=== PATIENT | female | born 1980 | race American Indian/Alaskan Native ===

== ENCOUNTER 2017-11-25 11:24 | Emergency (ER) | payer OTHER ==
[2017-11-25 12:47] LABS: Basophils % (Auto) 0.7 % (0.0-1.8); Eosinophils # (Auto) 0.1 K/mm3 (0.0-0.4); Eosinophils % (Auto) 1.4 % (0.0-4.3); Hematocrit 33.8 % (30.3-42.9); Hemoglobin 10.5 gm/dl (10.1-14.3); Lymphocytes # (Auto) 2.5 K/mm3 (1.2-5.4); Lymphocytes % (Auto) 35.9 % (13.4-35.0); Mean Corpuscular HGB Conc 31 % (30-34); Mean Corpuscular Volume 73 fl (79-97); Monocytes # (Auto) 0.8 K/mm3 (0.0-0.8); Monocytes % (Auto) 11.1 % (0.0-7.3); Platelet Count 431 K/mm3 (140-440); Red Blood Count 4.66 M/mm3 (3.65-5.03); Red Cell Distribution Width 17.9 % (13.2-15.2)
[2017-11-25 12:51] LABS: Mean Corpuscular Hemoglobin 23 pg (28-32)
[2017-11-25 13:03] LABS: HCG Qualitative,Urine Negative (Negative)
[2017-11-25 13:06] LABS: Bacteria,Urine 1+ /HPF (Negative); Mucus,Urine 1+ /HPF
[2017-11-25 13:12] LABS: Bilirubin,Urine NEG (Negative); Blood,Urine LG (Negative); Color,Urine Yellow (Yellow); Urobilinogen,Urine < 2.0 mg/dL (<2.0)
--- NOTE | 2017-11-25 16:47 | Emergency Department Report ---
HPI - General Chief Complaint: Vaginal Bleeding Time Seen by Provider: 11/25/17 16:33 - HPI HPI: Room 3 The patient is a 37-year-old female comes in with a chief complaint of dizziness , fatigue and shortness of breath. The patient states she has a history of heavy cycles for the past 4 months. The patient was started on oral contraceptives by her SENIOR SYSTEMS DEVELOPER. The patient states she's had vaginal spotting for the past 15 days. The patient states her SENIOR SYSTEMS DEVELOPER who instructed her to go to the emergency department if she developed dizziness. The patient states 3 days ago she developed dizziness and fatigue. The patient's that began noticing shortness of breath/dyspnea on exertion. Patient admits to occasional cough that is nonproductive. Patient denies orthopnea or fever. Patient states she's had a decreased appetite. The patient contacted her SENIOR SYSTEMS DEVELOPER and was instructed to come to the ED Location: [See above] Duration: [See above] Quality: [See above] Severity: Moderate Modifying factors: [see above] Context: [see above] Mode of transportation: [not driving] ED Past Medical Hx - Past Medical History Previous Medical History?: No - Surgical History Additional Surgical History: tonsilectomy - Family History Family history: no significant - Social History Smoking Status: Never Smoker Substance Use Type: None - Medications Home Medications: Home Medications Medication Instructions Recorded Confirmed Last Taken Type Meclizine [Antivert] 25 mg PO TID PRN #20 tablet 11/25/17 Unknown Rx ED Review of Systems ROS: Stated complaint: ABNORMAL LABS Other details as noted in HPI Constitutional: denies: fever Respiratory: cough, SOB with exertion Cardiovascular: dyspnea on exertion. denies: chest pain Genitourinary: abnormal menses Neurological: other (dizziness) Physical Exam - Physical Exam Vital Signs: Vital Signs 11/25/17 12:01 Temperature 98.5 F Pulse Rate 96 H Respiratory 16 Rate Blood Pressure 143/94 O2 Sat by Pulse 99 Oximetry Physical Exam: GENERAL: The patient is well-developed well-nourished female lying on stretcher not appearing to be in acute distress. [] HEENT: Normocephalic. Atraumatic. Extraocular motions are intact. Patient has moist mucous membranes. NECK: Supple. Trachea midline CHEST/LUNGS: Clear to auscultation. There is no respiratory distress noted. HEART/CARDIOVASCULAR: Regular. There is no tachycardia. There is no gallop rub or murmur. ABDOMEN: Abdomen is soft, nontender. Patient has normal bowel sounds. There is no abdominal distention. SKIN: There is no rash. There is no edema. There is no diaphoresis. NEURO: The patient is awake, alert, and oriented. The patient is cooperative. The patient has no focal neurologic deficits. The patient has normal speech. Cranial nerves II through XII grossly intact, no drift. No dysmetria with finger to nose bilaterally. No nystagmus MUSCULOSKELETAL: There is no evidence of acute injury. ED Course Vital Signs 11/25/17 12:01 Temperature 98.5 F Pulse Rate 96 H Respiratory 16 Rate Blood Pressure 143/94 O2 Sat by Pulse 99 Oximetry ED Medical Decision Making - Lab Data Result diagrams: 11/25/17 12:23 11/25/17 18:06 Laboratory Tests 11/25/17 11/25/17 11/25/17 12:20 12:23 12:25 WBC 6.8 RBC 4.66 Hgb 10.5 Hct 33.8 MCV 73 L MCH 23 L MCHC 31 RDW 17.9 H Plt Count 431 Lymph % (Auto) 35.9 H Ashe % (Auto) 11.1 H Eos % (Auto) 1.4 Baso % (Auto) 0.7 Lymph # 2.5 Ashe # 0.8 Eos # 0.1 Baso # 0.0 Seg Neutrophils % 50.9 Seg Neutrophils # 3.5 D-Dimer Sodium Potassium Chloride Carbon Dioxide Anion Gap BUN Creatinine Estimated GFR BUN/Creatinine Ratio Glucose Calcium Total Creatine Kinase Troponin T NT-Pro-B Natriuret Pep Urine Color Yellow Urine Turbidity Clear Urine pH 7.0 Ur Specific [place] 1.025 Urine Protein 30 mg/dl Urine Glucose (UA) Neg Urine Ketones Neg Urine Blood Lg Urine Nitrite Neg Ur Reducing Substances Not Reportable Urine Bilirubin Neg Urine Ictotest Not Reportable Urine Urobilinogen < 2.0 Ur Leukocyte Esterase Neg Urine WBC (Auto) 3.0 Urine RBC (Auto) 2.0 U Epithel Cells (Auto) 11.0 Urine Bacteria (Auto) 1+ Urine Mucus 1+ Urine HCG, Qual Negative Blood Type A POSITIVE Antibody Screen Negative 11/25/17 11/25/17 11/25/17 16:42 16:42 18:06 WBC RBC Hgb Hct MCV MCH MCHC RDW Plt Count Lymph % (Auto) [place]he % (Auto) Eos % (Auto) Baso % (Auto) Lymph # [place]he # Eos # Baso # Seg Neutrophils % Seg Neutrophils # D-Dimer 193.49 Sodium 138 Potassium 3.9 Chloride 102.6 Carbon Dioxide 24 Anion Gap 15 BUN 9 Creatinine 0.9 Estimated GFR > 60 BUN/Creatinine Ratio 10 Glucose 125 H Calcium 9.0 Total Creatine Kinase 123 Troponin T < 0.010 NT-Pro-B Natriuret Pep 15.20 Urine Color Urine Turbidity Urine pH Ur Specific [place] Urine Protein Urine Glucose (UA) Urine Ketones Urine Blood Urine Nitrite Ur Reducing Substances Urine Bilirubin Urine Ictotest Urine Urobilinogen Ur Leukocyte Esterase Urine WBC (Auto) Urine RBC (Auto) U Epithel Cells (Auto) Urine Bacteria (Auto) Urine Mucus Urine HCG, Qual Blood Type Antibody Screen - EKG Data -: EKG Interpreted by Me EKG shows normal: sinus rhythm Rate: normal - EKG Data When compared to previous EKG there are: previous EKG unavailable Interpretation: nonspecific ST-T wave michael (T-wave inversion in lead 3) - Radiology Data Radiology results: image reviewed (chest x-ray) interpreted by me: Chest x-ray-no focal infiltrates, no pneumothorax - Differential Diagnosis symptomatic anemia, CHF, PE, pneumonia Critical care attestation.: If time is entered above; I have spent that time in minutes in the direct care of this critically ill patient, excluding procedure time. ED Disposition Clinical Impression: Dizziness, Abnormal vaginal bleeding Disposition: DC-01 TO HOME OR SELFCARE Is pt being admited?: No Does the pt Need Aspirin: No Condition: Stable Instructions: Vertigo (ED) Additional Instructions: Return to the emergency department immediately should you develop worsening symptoms, fever, inability to tolerate food or liquid or any other concerns. Prescriptions: Meclizine [Antivert] 25 mg PO TID PRN #20 tablet PRN Reason: Vertigo Referrals: PRIMARY CARE, [Primary Care Provider] - 3-5 Days KATIE IGLESIAS MD [Staff Physician] - [facility] Time of Disposition: 19:07
[2017-11-25 19:02] LABS: BUN/Creatinine Ratio 10; Blood Urea Nitrogen 9 mg/dL (7-17); Hemolysis Index 0
[2017-11-25 19:07] LABS: Creatine Kinase MB < 1.0 ng/mL (0.0-4.0)
--- NOTE | 2017-11-25 19:10 | XRay Report ---
FINAL REPORT EXAM: XR CHEST ROUTINE 2V HISTORY: dyspnea on exertion TECHNIQUE: PA and lateral views of the chest PRIORS: None. FINDINGS: Lines, tubes, and devices: N/A Lungs and pleura: Trachea is normal in position. Lungs are clear of infiltrate, pleural effusion, vascular congestion, or pneumothorax. Cardiomediastinal silhouette: Cardiac and mediastinal silhouettes are unremarkable. Other: Bony structures are intact. IMPRESSION: No acute cardiopulmonary process seen.
[2017-11-25 19:59] VITALS: BP 117/57
== END 2017-11-25 20:19 | disposition home or self-care (01) ==
LOC: ED 11:24
DX: N93.9 Abnormal uterine and vaginal bleeding, unspecified (principal); R42 Dizziness and giddiness; Z88.8 Allergy status to other drugs, medicaments and biological substances
CPT/HCPCS: 36415; 71046; 80048; 81001; 81025; 82550; 82553; 83880; 84484; 85025; 85379; 86850; 86900; 86901; 93005; 93010; 99284

== ENCOUNTER 2020-06-06 13:55 | Outpatient (CLI) | payer OTHER ==
--- NOTE | 2020-06-07 16:21 | Magnetic Resonance Report ---
Bilateral breast MRI with and without contrast. History: New diagnosis left breast cancer Procedure: Axial T1 and T2-weighted fat-sat images were obtained precontrast. 18 cc MultiHance was i njected intravenously and serial axial T1-weighted images with fat saturation were obtained postcontr ast. 3-D MIP projections, Kinetic analysis and subtraction imaging was utilized to evaluate. A [employer] 8 channel breast coil was utilized for image acquisition. Comparison: Bilateral mammogram 03/08/2020, left postbiopsy diagnostic mammogram 05/19/2020, left breast ultrasound 03/08/2020 Findings: Background level of enhancement is mild. No suspicious axillary or clavicular nodes are identified. No abnormal bone marrow signal is seen. No significant chest wall enhancement is noted. Incidental note is made of gallstones without obvious a cute change. Right breast: Mild proliferative type changes are seen. No suspicious lesions are noted. Left breast: Mild proliferative type changes are seen. The known malignant mass in the lateral upper mid to posterior breast is seen. This mass has irregular margins and several projections, particularl y anteriorly. Greatest diameter is 4.3 cm. Contained biopsy clip and cavity are noted. The mass is ap proximately 10 cm from the nipple, 11 mm from the lateral skin surface, and 3.8 cm from the chest wal l. In the lateral mid breast more superiorly, a reniform enhancing focus is thought very likely a sma ll intramammary lymph node. No separate areas of suspicious enhancement are seen in the left breast. Impression: Known area of malignancy is seen on the left without separate areas of concern BIRADS: 6: Known diagnosis breast cancer Signer Name: Scot Nice MD Signed: 06/07/2020 4:16 PM Workstation Name: [id number]
== END 2020-06-06 13:56 | disposition home or self-care (01) ==
LOC: SPVIMAG 13:55
PROVIDERS: ATTEND Surgery
DX: C50.412 Malignant neoplasm of upper-outer quadrant of left female breast (principal)
CPT/HCPCS: A9577; C8908; 77049

== ENCOUNTER 2020-06-30 09:35 | Day surgery (SDC) | payer OTHER ==
[2020-06-28 13:28] LABS: Basophils % (Auto) 0.8 % (0.0-1.8); Eosinophils # (Auto) 0.1 K/mm3 (0.0-0.4); Eosinophils % (Auto) 1.1 % (0.0-4.3); Hematocrit 38.2 % (30.3-42.9); Hemoglobin 13.2 gm/dl (10.1-14.3); Lymphocytes # (Auto) 2.3 K/mm3 (1.2-5.4); Lymphocytes % (Auto) 39.1 % (13.4-35.0); Mean Corpuscular HGB Conc 35 % (30-34); Mean Corpuscular Volume 85 fl (79-97); Monocytes # (Auto) 0.5 K/mm3 (0.0-0.8); Monocytes % (Auto) 9.3 % (0.0-7.3); Platelet Count 310 K/mm3 (140-440); Red Blood Count 4.51 M/mm3 (3.65-5.03); Red Cell Distribution Width 14.3 % (13.2-15.2)
[2020-06-28 13:47] LABS: BUN/Creatinine Ratio 11; Blood Urea Nitrogen 10 mg/dL (7-17); Calcium 9.4 mg/dL (8.4-10.2); Hemolysis Index 12
[~2020-06-30 09:35] MED LIST: LIDOCAINE MPF (2%) 20 MG/1 ML VIAL 5 ML ONE; ceFAZolin/Water 2 GM/20 ML 2 GM/20 ML SYRINGE IV NR; fentaNYL 250 MCG/5 ML INJ ONE; propofoL 200 MG/20 ML VIAL IV ONE
[2020-06-30] MEDS ORDERED: fentaNYL 100 MCG/2 ML INJ IV ONE (09:40)
[2020-06-30] MEDS ORDERED: HYDROmorphone 1 MG/1 ML INJ IV PRN (09:40)
[2020-06-30] MEDS ORDERED: ONDANSETRON 4 MG/2 ML INJ IV PRN (09:40)
[2020-06-30] MEDS ORDERED: MIDAZOLAM 2 MG/2 ML INJ IV NR (10:00)
[2020-06-30] MEDS ORDERED: LACTATED RINGERS 1,000 ML IV SCH (10:00)
--- NOTE | 2020-06-30 10:01 | Anesthesia Day of Surgery ---
Anesthesia Day of Surgery - Day of Surgery Patient Examined: Yes Patient H&P Reviewed: Yes Patient is NPO: Yes
--- NOTE | 2020-06-30 10:03 | Anesthesia Consultation ---
Anesthesia Consult and Med Hx Date of service: 06/30/20 - Airway Anesthetic Teeth Evaluation: Crowns, Bridges ROM Head & Neck: Adequate Mental/Hyoid Distance: Adequate Mallampati Class: Class III Intubation Access Assessment: Probably Good - Pre-Operative Health Status ASA Pre-Surgery Classification: ASA2 Proposed Anesthetic Plan: General - Pulmonary Hx Smoking: No Hx Respiratory Symptoms: No (+2FS) - Cardiovascular System Hx Hypertension: No - Central Nervous System Hx Psychiatric Problems: No - Endocrine Hx Renal Disease: No Hx Insulin Dependent Diabetes: No - Hematic Hx Anemia: Yes (Past hx) Hx Sickle Cell Disease: No - Other Systems Hx Cancer: Yes Hx Obesity: Yes
[2020-06-30] MEDS ORDERED: LIDOCAINE (1%) 10 MG/1 ML VIAL 20 ML MDV ONE (10:16)
[2020-06-30] MEDS ORDERED: BUPIVACAINE/PF (0.5%) 5 MG/1 ML 30 ML VIAL INFILTRATI ONE ×3 (10:16→11:43)
[2020-06-30] MEDS ORDERED: SODIUM CHLORIDE P/F VIAL 10 ML 10 ML ONE (10:17)
[2020-06-30] MEDS ORDERED: METHYLENE BLUE 50 MG/10 ML AMP ONE (10:17)
[2020-06-30] MEDS ORDERED: NEOMY 40 MG/POLYMYXIN B 200,000 UNITS/ML (GU) AMPULE IR ONE ×2 (10:17→11:45)
[2020-06-30] MEDS ORDERED: dexAMETHasone 20 MG/5 ML VIAL ONE (11:28)
[2020-06-30] MEDS ORDERED: SODIUM CHLORIDE 0.9% P/F 10 ML VIAL INFILTRATI ONE (11:43)
[2020-06-30] MEDS ORDERED: LIDOCAINE (1%) 10 MG/1 ML VIAL 20 ML MDV INFILTRATI ONE (11:43)
[2020-06-30] MEDS ORDERED: METHYLENE BLUE 50 MG/10 ML AMP IV ONE (11:44)
[2020-06-30] MEDS ORDERED: WATER FOR IRRIG STERILE 1,500 ML BOTTLE IR ONE (12:56)
[2020-06-30] MEDS ORDERED: ONDANSETRON 4 MG/2 ML INJ ONE (13:33)
--- NOTE | 2020-06-30 13:57 | Short Stay Summary ---
Short Stay Documentation Date of service: 06/30/20 - History H&P: obtained from office - Allergies and Medications Current Medications: Allergies ethinyl estradiol [From [employer] ()] Allergy (Verified 06/28/20 08:50) Rash norgestimate [From [employer] ()] Allergy (Verified 06/28/20 08:50) Rash Home Medications Medication Instructions Recorded Confirmed Last Taken Type Lactobacillus Combination No.8 1 each PO DAILY 06/28/20 06/30/20 06/27/20 08:00 History [Adult Probiotic] Montelukast [Singulair] 10 mg PO QPM 06/28/20 06/30/20 06/27/20 08:00 History Multivit-Min/Iron/Folic Acid/K 1 each PO DAILY 06/28/20 06/30/20 06/27/20 08:00 History [One Daily Women's Multivitamin] RX: Phentermine HCl 37.5 mg PO DAILY 06/28/20 06/28/20 06/27/20 08:00 History Spironolactone [Aldactone] 50 mg PO BID 06/28/20 06/30/20 06/27/20 08:00 History cephALEXin [Keflex] 500 mg PO Q12HR #14 cap 06/30/20 Unknown Rx oxyCODONE /ACETAMINOPHEN [Percocet 1 tab PO Q6HR PRN #25 tablet 06/30/20 Unknown Rx 5/325] Active Medications Hydromorphone HCl (Dilaudid) 0.25 mg IV Q10MIN PRN PRN Reason: Pain, Moderate (4-6) Stop: 07/01/20 09:39 Hydromorphone HCl (Dilaudid) 0.5 mg IV Q10MIN PRN PRN Reason: Pain , Severe (7-10) Stop: 07/01/20 09:39 Cefazolin Sodium (Ancef/Sterile Water 2 Gm/20 Ml) 2 gm in 20 mls @ 80 mls/hr IV PREOP NR; Protocol Stop: 06/30/20 23:59 Lactated Ringer's (Lactated Ringers) 1,000 mls @ 125 mls/hr IV DIRECT VON Last Admin: 06/30/20 10:20 Dose: 125 mls/hr Documented by: Midazolam HCl (Versed) 2 mg IV PREOP NR Stop: 06/30/20 23:59 Last Admin: 06/30/20 10:28 Dose: 2 mg Documented by: Ondansetron HCl (Zofran) 4 mg IV ONCE PRN PRN Reason: Nausea And Vomiting - Brief post op/procedure progress note Date of procedure: 06/30/20 Pre-op diagnosis: Left breast cancer upper outer quadrant Post-op diagnosis: same Procedure: Left partial mastectomy with SLNB and 2x3 cm Biozorb placement Anesthesia: GETA Findings: Left breast mass with clip present; x2 slns Surgeon: ASMITA CARO Estimated blood loss: other (50 cc) Specimen disposition: to lab Condition: stable - Disposition Condition at discharge: Good Disposition: DC- TO HOME OR SELFCARE Short Stay Discharge Plan Activity: other (no heavy lifting) Diet: regular Wound: keep clean and dry (wear breast binder; may shower in 48 hours; no baths) Follow up with: ASMITA CARO MD [Staff Physician] - 7 Days Prescriptions: cephALEXin [Keflex] 500 mg PO Q12HR #14 cap oxyCODONE /ACETAMINOPHEN [Percocet 5/325] 1 tab PO Q6HR PRN #25 tablet PRN Reason: Pain
[2020-06-30] MEDS: HYDROmorphone 1 MG/1 ML INJ IV PRN ×2 (14:32→14:42)
[2020-06-30 15:10] VITALS: BP 131/79
--- NOTE | 2020-06-30 16:34 | Operative Report ---
Operative Report Operative Report: Operative Report: June 30, 2020 Preoperative diagnosis: Left breast cancer of the upper outer quadrant Postoperative diagnosis: Same Procedure: Left partial mastectomy of the upper outer quadrant with SLNB and placement of BioZorb marker 2x3 cm (lot [id number]) Surgeon: Xiomara Rojas MD Beet Topper: Leandro Esparza MD Anesthesia: General Findings: Left breast mass and clip present within radiograph specimen; x2 SLNs; placement of BioZorb marker 2x3 cm Complications: None EBL: 50 cc Disposition: PACU in good condition Indications for operative procedure: This is a 39 year old lady with newly diagnosed left breast cancer of the upper outer quadrant, IDCA with mucinous features grade 1, Stage I T2N0M0 ER/MA positive (3:00 position 10 cm FN). Recommendations are to proceed with breast conservation. She understands the role of adjuvant radiation therapy and Oncotype DX will be obtained by medical oncology. She wished to proceed with the above procedure. Procedure in detail: Patient was taken to the operating room and was laid supine. Gen. anesthesia was administered. The left nipple was injected with radioisotope. Left breast and axilla were prepped and draped in the normal sterile operative fashion. Timeout was performed. Gamma probe was inserted into the axilla. The area of hot spot was identified. A left axillary incision was made with a 15 blade knife with dissection taken down to the subcutaneous tissues. The axillary fascia was opened with the Bovie cautery. 2 SLNs were identified and dissected free. All remaining counts were less than 10% of the highest count. No palpable axillary lymph nodes present within the axilla. Lymph nodes were sent to pathology for permanent processing. Hemostasis was obtained in the left axillary cavity. Axillary cavity was appropriately irrigated and suctioned. Hemostasis was noted. Axillary fascia was approximated and closed using interrupted 3-0 Vicryl and the skin brought together and closed using a running 4-0 Monocryl followed by skin affix. Attention was then taken towards the left breast. Ultrasound was used as well to stephany the area of incision, known cancer at 3:00 positin 10 cm FN. A superior breast incision around 2:00 position was made with a 15 blade knife and dissection taken down to subcutaneous tissues. First began raising of the superior flap with dissection taken superiorly past the area of known malignancy and then taken down to the pectoralis muscle, followed by raising of the inferior flap, medial flap and lateral flap with all flaps taken past the area of known malignancy and then posteriorly down to the pectoralis muscle. A questionable satellite lesion was noted as well that was incorporated into the area of the partial mastectomy (superficial nodule at 2:00 position at least 2 cm from main palpable cancer mass). The breast area of concern was appropriately removed posteriorly from the pectoralis muscle with the aid of the Bovie cautery. Specimen was marked and then sent to pathology and radiology; radiograph specimen with mass and clip present. Breast cavity was irrigated and hemostasis was obtained. The breast cavity was then anesthesized with 1% lidocaine mixed with quarter percent marcaine. Then proceeded with placement of BioZorb marker lot [id number]. The posterior deep breast tissues were then mobilized to approximate and cover the area of the defect of at least 7 cm. The posterior deep breast tissues were approximated and closed using interrupted 3-0 Vicryl. The BioZorb of 2x3 centimeters was then sutured into place using interrupted 2-0 PDS, placing 4 sutures. Anterior breast tissue were then approximated and closed using interrupted 3-0 Vicryl. The BioZorb was not easily palpable. The subcutaneous tissues were then approximated and closed using interrupted 3-0 Vicryl followed by closing of the skin with a running 4-0 Monocryl and skin affix. The patient tolerated surgery very well and she was awaken from anesthesia without any complication and transported to PACU in good condition.
--- NOTE | 2020-06-30 17:21 | Post Anesthesia Evaluation ---
- Post Anesthesia Evaluation Patient Participated: Yes Airway Patent: Yes Stable Respiratory Function: Yes Nausea/Vomiting: No Temp > 96.8F: Yes Pain Manageable: Yes Adequeate Hydration: Yes Anesthesia Complications: No Block Receding Appropriately: Not Applicable Patient on Ventilator: No
--- NOTE | 2020-07-01 10:42 | Mammography Report ---
BREAST SPECIMEN RADIOGRAPH HISTORY: Left lumpectomy for breast carcinoma FINDINGS/IMPRESSION: The submitted radiograph or radiographs demonstrate(s) the presence of an irregular soft tissue mass containing biopsy clip. Signer Name: Meka Bocanegra MD Signed: 07/01/2020 10:38 AM Workstation Name: [id number]
== END 2020-06-30 15:45 | disposition home or self-care (01) ==
LOC: OR 09:35
PROVIDERS: ATTEND Surgery
DX: C50.412 Malignant neoplasm of upper-outer quadrant of left female breast (principal); Z20.828 Contact with and (suspected) exposure to other viral communicable diseases; I89.8 Other specified noninfective disorders of lymphatic vessels and lymph nodes; E66.9 Obesity, unspecified; Z88.8 Allergy status to other drugs, medicaments and biological substances; Z79.899 Other long term (current) drug therapy; Z98.890 Other specified postprocedural states; Z68.38 Body mass index [BMI] 38.0-38.9, adult; Z90.710 Acquired absence of both cervix and uterus; Z86.2 Personal history of diseases of the blood and blood-forming organs and certain disorders involving the immune mechanism
CPT/HCPCS: 19301; 36415; 38525; 38792; 76098; 78800; 80048; 85025; 88307; 88341; 88342; A4648; A9541; J0690; J1100; J1170; J2250; J2405; J2704; J3010; J7120; Q9968; U0003

== ENCOUNTER 2021-01-24 08:38 | Outpatient (CLI) | payer OTHER ==
--- NOTE | 2021-01-24 09:36 | Mammography Report ---
DIGITAL DIAGNOSTIC MAMMOGRAM WITH CAD , 01/24/2021 CLINICAL INFORMATION / INDICATION: Patient had left lumpectomy in June 2020 with subsequent XRT sh e is complaining of pain in the left breast at the lumpectomy site TECHNIQUE: Digital bilateral mammographic imaging was performed. This examination was interpreted with the benefit of Computer-aided Detection analysis. COMPARISON: Prior bilateral mammogram exam 03/08/2020, prior left mammogram 05/19/2020, and prior breast MR, 06/06/2020 FINDINGS: Breast Density: There are scattered areas of fibroglandular density. No dominant mass, suspicious calcifications or architectural distortion in the right breast. Since the prior exams, there has been interval left lumpectomy for biopsy-proven malignancy in the up per outer quadrant. Biozorb is noted at lumpectomy site. There is increased density throughout the l umpectomy site most likely due to postoperative and postradiation change. I cannot exclude some degre e of seroma. Previously noted malignant mass and associated biopsy clip are no longer present. IMPRESSION: No definitive mammographic evidence of malignancy. Postoperative changes noted in the lef t breast, upper outer quadrant. Since the postoperative changes are somewhat prominent for this patie nt, an additional 6 month follow-up left mammogram is suggested. Follow up recommendation: Short term follow up in 6 months. BI-RADS Category 3: Probably Benign. Followup in 6 months. A "normal" or negative report should not discourage follow up or biopsy of a clinically significant f inding. A written summary of these findings will be mailed to the patient. The patient will be entered into a mammography reporting system which will generate a reminder letter for the patient's next appointmen t at the appropriate interval. According to the [employer], yearly mammograms are recommended starting at age 40 and continuing as long as a woman is in good health. Breast MRI is recommended for women with an isael roximately 20-25% or greater lifetime risk of breast cancer, including women with a strong family his tory of breast or ovarian cancer and women who have been treated for Hodgkin's disease. Signer Name: Meka Bocanegra MD Signed: 01/24/2021 9:31 AM Workstation Name: [id number]
== END 2021-01-24 08:39 | disposition home or self-care (01) ==
LOC: SPVWC 08:38
PROVIDERS: ATTEND Surgery
DX: R92.8 Other abnormal and inconclusive findings on diagnostic imaging of breast (principal); N64.89 Other specified disorders of breast; Z85.3 Personal history of malignant neoplasm of breast
CPT/HCPCS: 77066

== ENCOUNTER 2021-06-26 08:25 | Observation (INO) | payer OTHER ==
--- NOTE | 2021-06-25 13:55 | History and Physical Report ---
History of Present Illness Date of examination: 06/19/21 Date of admission: 06/26/2021 Chief complaint: I want my ovaries removed History of present illness: Primary Provider: Calvin Iniguez MD CC: pre op. History of Present Illness: pt presents for pre op visit: Laparoscopy assisted bilat oophorectomy.................................................................... .Keeley Nice June 19, 2021 12:01 PM Mask, Patient denies fever, cough, shortness of breath and exposure to COVID-19. Vaccine completed per pt. 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 All risk/benefits/alternatives were d/w pt and questions were addressed and answered. Consents signed and placed on the chart. Limiations with treating post menopausal sx were d/w pt at length. She expressed understanding. I d/w pt possible need to convert to an open case due to scarring from brittani c/s and suprocervical hyst. She expressed understanding. Pt has been medically cleared. Vital Signs: Patient Profile: 40 Years Old Female Height: 66.5 inches (168.91 cm) Weight: 262 pounds BMI: 41.65 Temp: 97.1 degrees F BP sittin / 68 (left arm) Current Method of Contraception: Hysterectomy [OB-New Pt-Past Preg Hx-CCC] [employer] History Uterine Surgery (not C/S): negative Operations: Tonsillectomy 2018 Supracervical Hysterectomy-2018 Breast Lumpectomy: Hospitalizations: negative Anesthesia Complications: negative Abnormal PAP: negative Uterine Anomaly: negative SHER Exposure: negative Infertility: negative Infection History HIV Risk Eval: no TB exposure: no Personal hx. of genital herpes: yes Partner hx. of genital herpes: no Rash/viral illness since LMP: no Hx of STD: HPV,HSV II Active Medications (reviewed today): EFFEXOR () LUPRON INJ () TAMOXIFEN CITRATE TABLET (TAMOXIFEN CITRATE TABS) PRILOSEC 20MG TABS () SPIRONOLACTONE 50 MG ORAL TABLET (SPIRONOLACTONE) MULTI VITAMINS () VITAMIN D () Current Allergies (reviewed today): SPRINTEC 28 (NORGESTIMATE-ETH ESTRADIOL TABS) (Critical) Past Medical History: Reviewed history from 03/02/2021 and no changes required: Obesity Breast Cancer-diagnosed and treated 2019 Past Surgical History: Reviewed history from 03/02/2021 and no changes required: Tonsillectomy 2018 Supracervical Hysterectomy-2018 Breast [facility]pectomy: [[facility] Risk Factors: Smoked Tobacco Use: Never smoker Smokeless Tobacco Use: Never Passive Smoke Exposure: no HIV High Risk Behavior: no Exercise: no Seatbelt Use: 100 % Alcohol Use: no Drug Use: no Review of Systems General Denies fever, chills, sweats, anorexia, fatigue, weakness, malaise, weight loss and sleep disorder. Denies nausea, vomiting, headache, swelling of legs, abdominal pain, vaginal discharge, vaginal bleeding and contractions. Denies vaginal discharge, incontinence, dysuria, hematuria, urinary frequency, amenorrhea, menorrhagia, abnormal vaginal bleeding, pelvic pain, genital sores, decreased libido, painful periods, painful sex, urinary urgency, hot flashes, vaginal dryness, vaginal itching and vaginal odor. CV Denies chest pains, palpitations, syncope, dyspnea on exertion, orthopnea, PND and peripheral edema. Resp Denies cough, dyspnea at rest, excessive sputum, hemoptysis, wheezing and pleurisy. GI Denies nausea, vomiting, diarrhea, constipation, change in bowel habits, abdominal pain, melena, hematochezia, jaundice, gas/bloating, indigestion/heartburn, dysphagia and odynophagia. Endo Denies cold intolerance, heat intolerance, polydipsia, polyphagia, polyuria and unusual weight change. Breast Denies left breast lump, right breast lump, nipple discharge, bloody discharge from nipple, breast pain, abnormal mammogram and breast enlargement. MS Denies back pain, joint pain, joint swelling, muscle cramps, muscle weakness, stiffness, arthritis, sciatica, restless legs, leg pain at night and leg pain with exertion. Derm Denies rash, itching, dryness and suspicious lesions. Neuro Denies paralysis, paresthesias, headache, seizures, tremors, vertigo, transient blindness, frequent falls, frequent headaches and difficulty walking. Psych Denies depression, anxiety, irritability and mood swings. Eyes Denies blurring, diplopia, irritation, discharge, vision loss, eye pain and photophobia. ENT Denies earache, ear discharge, tinnitus, decreased hearing, nasal congestion, nosebleeds, sore throat and hoarseness. Allergy Denies urticaria, allergic rash, hay fever and recurrent infections. Heme Denies abnormal bruising, bleeding and enlarged lymph nodes. [Labs In-House] Physical Exam Appearance: well developed, well nourished, no acute distress Other Exams Lungs: no rales, rhonchi, or wheezes Heart: S1, S2, no murmur, rub, or gallop Abdomen: soft, non-tender, no masses, bowel sounds normal Extremities: normal alignment, no joint enlargement, crepitus, masses or tenderness; normal tone and strength Genitourinary Exam Comments: deferred until EUA Past History Past Medical History: other (breast cancer; obesity) Past Surgical History: breast surgery, hysterectomy [employer] History: fibroids. denies: abnormal PAP smear Family/Genetic History: other (see hpi) Medications and Allergies Allergies Allergy/AdvReac Type Severity Reaction Status Date / Time ethinyl estradiol Allergy Rash Verified 06/21/21 18:22 [From Sprintec (28)] norgestimate Allergy Rash Verified 06/21/21 18:22 [From Sprintec (28)] Home Medications Medication Instructions Recorded Confirmed Last Taken Type Multivit-Min/Iron/Folic Acid/K 1 each PO DAILY 06/28/20 06/22/21 06/27/20 08:00 History [One Daily Women's Multivitamin] Spironolactone [Aldactone] 50 mg PO BID 06/28/20 06/22/21 06/27/20 08:00 History Levocetirizine Dihydrochloride 5 mg PO DAILY 06/22/21 06/22/21 Unknown History [Xyzal] Promethazine HCl [Promethazine TAB] 12.5 mg PO Q4H PRN 06/22/21 06/22/21 Unknown History Tamoxifen Citrate 20 mg PO DAILY 06/22/21 06/22/21 Unknown History Venlafaxine [Effexor 37.5mg tab] 37.5 mg PO QDAY 06/22/21 06/22/21 Unknown History Review of Systems All systems: negative - Vital Signs Vital signs: Vital Signs Temp Pulse Resp BP Pulse Ox 98.1 F 84 20 143/98 100 06/22/21 13:20 06/22/21 13:20 06/22/21 13:20 06/22/21 13:20 06/22/21 13:20 Temp Pulse Resp BP Pulse Ox 98.1 F 84 20 143/98 100 06/22/21 13:20 06/22/21 13:20 06/22/21 13:20 06/22/21 13:20 06/22/21 13:20 - Physical Exam Cardiovascular: Normal S1, Normal S2 Lungs: Positive: Clear to auscultation, Normal air movement Abdomen: Positive: normal appearance, soft. Negative: distention, tenderness, guarding Genitourinary (Female): Positive: other (deferred until EUA) Deep Tendon Reflex Grade: Normal +2 Results All other labs normal. Assessment and Plan - Patient Problems (1) Prophylactic ovary removal Status: Acute Plan to address problem: -admit -prepare for laproscopic blilaterally oohprectomy -consents signed and plced onthe chart.
[~2021-06-26 08:25] MED LIST changes: +ACETAMINOPHEN 500 MG TAB PO SCH; +CELECOXIB 200 MG CAP PO NR; +GABAPENTIN 300 MG CAP PO NR; +KETOROLAC 30 MG/1 ML INJ ONE; +LACTATED RINGERS 1,000 ML IV SCH; -LIDOCAINE MPF (2%) 20 MG/1 ML VIAL 5 ML ONE; +MIDAZOLAM 2 MG/2 ML INJ IV NR; +SCOPOLAMINE TRANSDERMAL PATCH 72 HR TD NR; -ceFAZolin/Water 2 GM/20 ML 2 GM/20 ML SYRINGE IV NR; -fentaNYL 250 MCG/5 ML INJ ONE; -propofoL 200 MG/20 ML VIAL IV ONE
[2021-06-26] MEDS ORDERED: ceFAZolin/Water 2 GM/20 ML 2 GM/20 ML SYRINGE IV NR (09:00)
--- NOTE | 2021-06-26 09:08 | Anesthesia Day of Surgery ---
Anesthesia Day of Surgery - Day of Surgery Patient Examined: Yes Patient H&P Reviewed: Yes Patient is NPO: Yes
--- NOTE | 2021-06-26 09:08 | Anesthesia Consultation ---
Anesthesia Consult and Med Hx Date of service: 06/26/21 - Airway Anesthetic Teeth Evaluation: Good, Bridges (upper left ) ROM Head & Neck: Adequate Mental/Hyoid Distance: Adequate Mallampati Class: Class II Intubation Access Assessment: Probably Good - Pre-Operative Health Status ASA Pre-Surgery Classification: ASA2 Proposed Anesthetic Plan: General - Pulmonary Hx Smoking: No Hx Respiratory Symptoms: No - Cardiovascular System Hx Hypertension: No - Central Nervous System CVA: No - Endocrine Hx Renal Disease: No Hx Liver Disease: No Hx Insulin Dependent Diabetes: No Hx Non-Insulin Dependent Diabetes: No Hx Thyroid Disease: No - Other Systems Hx Cancer: Yes (hx breast ca s/p radiation and surgery) Hx Obesity: Yes (BMI 39) - Additional Comments Anesthesia Medical History Comments: Possible hx PONV.
[2021-06-26] MEDS ORDERED: ONDANSETRON 4 MG/2 ML INJ IV PRN (09:09)
[2021-06-26] MEDS ORDERED: oxyCODONE /ACETAMINOPHEN 5-325MG TAB PO PRN (09:09)
[2021-06-26] MEDS ORDERED: BUPIVACAINE/PF (0.5%) 5 MG/1 ML 30 ML VIAL INFILTRATI ONE ×2 (10:42→15:00)
[2021-06-26] MEDS ORDERED: ONDANSETRON 4 MG/2 ML INJ ONE (10:47)
[2021-06-26] MEDS ORDERED: MIDAZOLAM 2 MG/2 ML INJ ONE (10:47)
[2021-06-26] MEDS ORDERED: ROCURONIUM 50 MG/5 ML INJ IV ONE (10:47)
[2021-06-26] MEDS ORDERED: propofoL 200 MG/20 ML VIAL IV ONE (10:47)
[2021-06-26] MEDS ORDERED: LIDOCAINE MPF (2%) 20 MG/1 ML VIAL 5 ML ONE (10:47)
[2021-06-26] MEDS ORDERED: fentaNYL 100 MCG/2 ML INJ ONE (10:47)
[2021-06-26] MEDS ORDERED: GLYCOPYRROLATE 0.4 MG/2 ML INJ ONE (11:10)
[2021-06-26] MEDS ORDERED: NEOSTIGMINE 10MG/10 ML INJ MDV ONE (11:10)
[2021-06-26] MEDS ORDERED: PHENYLEPHRINE/NS 1,000 MCG/10 ML SYRINGE (OR USE) IV ONE (11:13)
[2021-06-26] MEDS ORDERED: dexAMETHasone 20 MG/5 ML VIAL ONE (11:15)
[2021-06-26] MEDS ORDERED: LACTATED RINGERS 1,000 ML ONE (12:53)
[2021-06-26] MEDS ORDERED: HYDROmorphone 1 MG/1 ML INJ ONE (14:01)
[2021-06-26] MEDS ORDERED: SODIUM CHLORIDE 0.9% IRRIG SOLN 2000 ML IR ONE (15:00)
[2021-06-26] MEDS ORDERED: SODIUM CHLORIDE 0.9% IRR 1,500 ML BOTTLE IR ONE (15:00)
[2021-06-26] MEDS ORDERED: MORPHINE 4 MG/1 ML INJ IV PRN (15:19)
[2021-06-26] MEDS ORDERED: KETOROLAC 30 MG/1 ML INJ IV PRN (15:19)
[2021-06-26] MEDS ORDERED: ACETAMINOPHEN 325 MG TAB PO PRN (15:19)
--- NOTE | 2021-06-26 15:21 | Operative Report ---
Operative Report Operative Report: Date of procedure: 06/26/2021 Pre-operative diagnosis: Hormone sensitive breast cancer Desires prophylactic removal of ovaries Post-operative diagnosis: Same plus dense adhesions of the adnexa to pelvic sidewall and bowel Procedure name(s): Laparoscopic bilateral salpingo-oophorectomy Lysis of adhesions Surgeon: Dr. Davis Casing Trimmer: Dr. Gaby Esquivel Anesthesia: General endotracheal anesthesia EBL: [] Urine output: [] Fluids: [] Findings: Adhesions of the left and right ovary to the pelvic sidewall and to the colon. Grossly normal fallopian tubes bilaterally grossly normal ovaries bilaterally Indications: Patient presents with past history of ovarian cancer currently on hormone suppressive therapy. Patient desired removal of ovaries to prevent further recurrence of breast cancer and to discontinue hormone suppressive therapy. All risk benefits and alternatives were discussed with the patient. Consents were signed and placed on the chart. Procedure: Patient was placed in dorsal lithotomy position she was placed under general anesthesia. Patient was prepped and draped in normal sterile fashion. Incision was made at the umbilicus with placement of a 5 mm trocar under direct visualization. Insufflation was then done. With direct visualization a right lateral trocar was placed that was approximately 12 mm and another 5 mm trocar was placed on the left side. Patient then underwent lysis of adhesions of the omentum to the anterior caleb wall. Attention was then turned to the left ovary in which there was lysis of adhesions from the pelvic sidewall in order to free up the ovary and the fallopian tube. The infundibulopelvic ligament was identified cauterized and transected. Ovary was placed in Endo Catch bag and removed. Attention was then turned to the left adnexa in which there were more dense adhesions to the ovary and fallopian tube to the pelvic sidewall as well as to the bowel and peritoneum. These adhesions were carefully lysed with both blunt and sharp dissection. The IP was identified transected and the ovary and fallopian tube were then removed on the right side and placed in side the Endo Catch bag and removed from the abdomen. Due to the significant lysis of adhesions that were done very close to the bowel Dr. Canales was called in to evaluate and noted that there appeared to be no lacerations or damage to the bowel with lysis of adhesions. The 12 mm trocar was then closed under direct visualization with care to include the fascia with the closure of the incision excellent hemostasis was noted. The air was then released from the abdomen after the other trochars have been removed under direct visualization. The inci sions were then closed using 4 Monocryl in a subcuticular stitch. Patient did receive injection of Marcaine without epi after the incisions were closed. All lap needle counts were correct patient was taken to the recovery room in stable condition.
[2021-06-26] MEDS ORDERED: ONDANSETRON 4 MG ODT TAB PO PRN (15:40)
[2021-06-26] MEDS: HYDROmorphone 1 MG/1 ML INJ IV PRN ×2 (16:45→16:55)
--- NOTE | 2021-06-26 17:49 | Post Anesthesia Evaluation ---
- Post Anesthesia Evaluation Patient Participated: Yes Airway Patent: Yes Stable Respiratory Function: Yes Nausea/Vomiting: No Temp > 96.8F: Yes Pain Manageable: Yes Adequeate Hydration: Yes Anesthesia Complications: No
[2021-06-26] MEDS: ceFAZolin/NS 1 GM/50 ML 1 GM/50 ML BAG IV SCH (18:39)
[2021-06-26] MEDS ORDERED: WITCH HAZEL/ GLYCERIN PAD TP PRN (21:48)
[2021-06-26] MEDS ORDERED: BENZOCAINE/MENTHOL 20/0.5% TOP SPRAY 56 GM TP PRN (21:49)
[2021-06-26] MEDS ORDERED: FLUCONAZOLE 200 MG TAB PO ONE (22:00)
[2021-06-26] MEDS ORDERED: FLUCONAZOLE 100 MG TAB PO ONE (22:00)
[2021-06-26] MEDS: DOCUSATE SODIUM 100 MG CAP PO SCH (22:15)
[2021-06-26] MEDS: HYDROcodone/ACETAMINOPHEN 5-325 MG TAB PO PRN (22:18)
[2021-06-27] MEDS: ceFAZolin/NS 1 GM/50 ML 1 GM/50 ML BAG IV SCH (00:45)
[2021-06-27] MEDS: HYDROcodone/ACETAMINOPHEN 5-325 MG TAB PO PRN ×2 (04:10→10:15)
[2021-06-27 05:35] LABS: Hematocrit 33.7 % (30.3-42.9)
--- NOTE | 2021-06-27 08:43 | Progress Note ---
Assessment and Plan - Patient Problems (1) Prophylactic ovary removal Current Visit: No Status: Acute Plan to address problem: -routine post op care -d/c home this am Subjective - Subjective Date of service: 06/27/21 Principal diagnosis: POD #1 s/p Laproscopic BSO Interval history: Pt states she has some nausea due to her meds she is taking for breast cancer treatment. nausea is at baseline that it was prior to sx. No emesis. STate she usually has relief with promethazine and this rx was provider with d/c meds. She does c/o incisional pain but overall is doing well. Pt desires d/c home today. Patient reports: appetite normal, voiding normally, pain well controlled, no dizzy ambulation Objective - Vital Signs Latest vital signs: Vital Signs Temp Pulse Resp BP BP Pulse Ox 06/27/21 05:10 18 06/27/21 04:15 97.6 F 86 16 119/69 99 06/27/21 04:10 18 06/26/21 23:42 97.7 F 94 H 16 137/77 93 06/26/21 22:18 20 06/26/21 20:00 100 06/26/21 19:26 98.7 F 72 16 133/81 94 06/26/21 19:15 18 06/26/21 17:40 97.6 F 73 18 138/83 96 06/26/21 17:25 16 06/26/21 16:55 16 06/26/21 16:45 16 06/26/21 16:32 68 18 130/77 96 06/26/21 16:17 66 16 124/76 95 06/26/21 16:02 70 16 126/73 100 06/26/21 15:47 97.2 F L 64 16 116/70 100 06/26/21 15:35 66 19 112/71 100 06/26/21 15:32 66 16 114/73 100 06/26/21 15:27 65 18 122/82 100 06/26/21 15:22 67 16 116/67 100 06/26/21 15:17 96.8 F L 70 16 112/70 100 06/26/21 10:00 16 06/26/21 09:00 16 06/26/21 08:50 98.5 F 88 16 113/59 97 Intake and Output 1006/27/21 06/27/21 22:59 06:59 14:59 Intake Total 610 240 Output Total 1250 Balance 610 -1010 Intake: IV 250 ANCEF/NS 1 GM/50 ML 1 gm 50 In 50 ml @ 100 mls/hr IV Q8H [facility] Rx#:[id number] Oral 120 Intake, Free Water 240 240 Output: Urine 1250 Indwelling Catheter 650 Void 600 Other: Total, Intake Amount 120 Total, Output Amount 300 Voiding Method Toilet # Voids Void 1 - Exam Cardiovascular: Present: Normal S1, Normal S2 Lungs: Present: Clear to auscultation, Normal air movement Abdomen: Present: normal appearance, soft. Absent: distention, tenderness Incision: Present: normal, dry, intact
--- NOTE | 2021-06-27 08:44 | Discharge Summary ---
Providers - Providers Date of Admission: 06/26/21 15:19 Date of discharge: 06/27/21 Attending physician: KATIE IGLESIAS Primary care physician: RECOOPERER Hospitalization Reason for admission: other (laproscopic bso) Hospital course: Pt admitted for BSO which was not complicated. She had a non complicated post op course. Pt d/c home today with f/u in office in one week. Condition at discharge: Good Disposition: 01 HOME / SELF CARE / HOMELESS - Discharge Diagnoses (1) Prophylactic ovary removal Status: Acute Plan - Discharge Medications Prescriptions: Docusate Sodium [Colace] 100 mg PO BID PRN #60 capsule PRN Reason: Constipation Ibuprofen [Motrin 800 MG tab] 800 mg PO Q8HR PRN #30 tablet PRN Reason: Pain, Moderate (4-6) oxyCODONE /ACETAMINOPHEN [Percocet 5/325] 1 tab PO Q4HR #30 tab Promethazine [Phenergan] 12.5 mg PO Q6HR PRN #20 tab PRN Reason: Nausea - Provider Discharge Summary Additional instructions: [] Smoking cessation referral if applicable(refer to patient education folder for contact #) [] Refer to [facility] Booklet Call your doctor immediately for: * Fever > 100.5 * Heavy vaginal bleeding ( >1 pad per hour) * Severe persistent headache * Shortness of breath * Reddened, hot, painful area to leg or breast * Drainage or odor from incision. * Keep incision clean and dry at all times and follow doctor's instructions regarding bathing/showering - Follow up plan Follow up: PRIMARY CARE, [Primary Care Provider] - 7 Days Forms: [facility] Discharge Summary
[2021-06-27] MEDS ORDERED: PROMETHAZINE 25 MG TAB PO PRN (09:00)
[2021-06-27 09:07] VITALS: BP 102/46
[2021-06-27] MEDS: DOCUSATE SODIUM 100 MG CAP PO SCH (10:15)
== END 2021-06-27 11:20 | disposition home or self-care (01) ==
LOC: OR 08:25 → OB 15:19
PROVIDERS: ADMIT Obstetrics & Gynecology; ATTEND Obstetrics & Gynecology
DX: Z40.02 Encounter for prophylactic removal of ovary(s) (principal); Z20.822 Contact with and (suspected) exposure to COVID-19; N73.6 Female pelvic peritoneal adhesions (postinfective)
CPT/HCPCS: 36415; 58661; 85014; 85018; 88305; 96365; 96366; 96375; A4217; G0378; J0690; J1100; J1170; J1885; J2250; J2270; J2370; J2405; J2704; J2710; J3010; J7120; U0003; Q0162